=== PATIENT | male | born 1980 | race Caucasian/White ===

== ENCOUNTER → 2019-12-02 07:53 | Outpatient (CLI) | payer OTHER, SELFPAY ==
[2019-11-23 12:50] VITALS: BMI 34.5
--- NOTE | 2019-12-02 15:40 | PFTCOMP_ITS ---
COMPLETE PULMONARY FUNCTION TEST INTERPRETATION Brief HPI: Patient is a 39 year old male, currently under the care of myself, who presents to [facility] for complete pulmonary function tests secondary to diagnosis of dyspnea. Respiratory therapist reports good effort and reproducible results. Interpretation: Forced expiration spirometry shows no large airways obstructive ventilatory defect with an FEV1 of 89% predicted. There is no significant bronchodilator response by strict ATS criteria. Spirograms are of good quality and plateau normally. The respiratory flow volume loop shows a normal pattern. Lung volumes by body plethysmography show a normal total lung capacity at 6.7 L, 96% predicted. All other lung volumes are within normal limits. Diffusion capacity by carbon monoxide is normal at 101% predicted. The airway resistance is normal. No previous pulmonary function tests were available for review. Impression: Grossly normal pulmonary function test, but some stigmata of possible small airways disease.
== END ==
PROVIDERS: Referring Provider Internal Medicine Critical Care Medicine; Visit Provider Internal Medicine Critical Care Medicine
DX: R06.09 Other forms of dyspnea (principal)
CPT/HCPCS: 94060; 94726; 94729

== ENCOUNTER 2019-12-11 19:00 | Emergency (ER) | payer OTHER, SELFPAY ==
[2019-11-23 12:50] VITALS: BMI 34.5
[2019-12-11 19:01] VITALS: BP 127/70; PULSE 73; RESP 18; TEMP 36.1; O2SAT 96; BMI 33.7
--- NOTE | 2019-12-11 19:23 | ED.VIS.GEN ---
History of Present Illness Chief Complaint: Dizziness Informant: Patient Onset: Hours - 1-2 Context: Sudden Onset - When sat up Timing: Continuous, Waxes and wanes Quality: spinning Location: head Current Severity: Mild Maximum Severity: Severe Worsened by: moving/turning head Relieved by: remaining still Associated Symptoms: n/v, tinnitus bilat but worse on left Narrative: No injury to his head. Had an upper respiratory infection/cold a couple weeks ago that he is completely over now. Very remote history of tympanic membrane rupture when he was a child. States he was lying on the ground and felt a little woozy and then he sat up and suddenly felt spinning vertigo, followed by vomiting. No focal neurologic symptoms. He is feeling well whenever he is standing still, but when he moves his head or changes position he gets more vertiginous, nauseated, and has trouble walking straight as a result, when he is feeling vertiginous. No discharge from his ears or earache. No headache. No double vision. Past Medical History - Allergies and Home Meds Allergies/Adverse Reactions: Allergies ceftriaxone [From Rocephin] Allergy (Verified 12/11/19 19:03) Unknown levofloxacin [From Levaquin] Allergy (Verified 12/11/19 19:03) Unknown Primary Care Physician: Care Physician,No Primary [Primary Care Provider] - Past Medical History: None - Except remote tympanic membrane rupture, spontaneous Lives: Spouse/ Significant Other Smoking Status: Never smoker Review of Systems General: Denies: Chills, Fever, Sweats Eyes: Denies: Visual changes - bilaterally, Diplopia ENT: Reports: - - Bilateral tinnitus, worse on left. Denies: Bilateral ear pain, Rhinorrhea, Sore throat Cardiovascular: Denies: Chest pain, Palpitations Respiratory: Denies: Dyspnea, Cough, Dyspnea on exertion Gastrointestinal: Reports: Nausea, Vomiting. Denies: Abdominal pain, Diarrhea, Melena, Hematochezia Genitourinary: Denies: Dysuria, Hematuria, Frequency Musculoskeletal: Denies: Back pain, Extremity Pain Skin: Denies: Rash, Wounds Neurological: Reports: - - Vertigo. See HPI.. Denies: Headache, Weakness, Numbness Physical Exam Vital Signs/Narrative: Vital Signs Temp Pulse Resp BP Pulse Ox 12/11/19 19:01 97.0 F L 73 18 127/70 H 96 Inital Vital Signs reviewed: Yes General: Well nourished, Well developed, No Acute Distress Head: Normocephalic, Atraumatic Eyes: Perrl, EOMI, - - No abnormal nystagmus, no rotatory or vertical nystagmus. ENT: Moist mucous membranes, No rhinorrhea, TM's clear - No perforation. Small scar on left, indicating probable healed perforation remotely. Neck: Supple, Nontender, No lymphadenopathy Cardiovascular: Regular rate, Regular rhythm, No murmurs Respiratory: No distress, CTA bilaterally, Chest nontender Abdomen: Soft, Nontender, Nondistended, Normal bowel sounds Back: Nontender, Normal Inspection Extremities: Nontender, No edema Skin: Normal color, No rash, No Trauma Neurological: Alert, Oriented x3, Cranial nerves II-XII grossly intact, Normal Strength, Normal Sensation, Normal DTR, - - Normal ufnrgy-wj-ndyj and bjgq-lb-mexo bilaterally Psychological: Normal affect, Normal Mood Diagnostic/Tx/Re-eval - Medical Decision Making History and exam consistent with peripheral vertigo. Patient was treated with Phenergan and meclizine and is feeling much better and able to walk down the hallway and back without feeling off balance. Prescribed both and advised to follow-up with otolaryngology if he still has symptoms after a week. ED Disposition - Plan for ED Patient: Disposition: Home or Assisted Living Diagnosis: Peripheral vertigo Instructions: VERTIGO, Unspecified Prescriptions: Meclizine HCl 25 mg PO Q8H PRN #16 tab PRN Reason: Dizziness Transmission Status: Pending to [facility] Promethazine HCl 25 mg PO Q6H PRN #16 tab PRN Reason: Nausea/Vomiting Transmission Status: Pending to [facility] Referrals: Ramirez Jacobson MD [STAFF PHYSICIAN] - 1 Week if not improving
[2019-12-11] MEDS: proMETHazine 25 MG Tablet PO (19:26)
[2019-12-11] MEDS: Meclizine HCl 25 MG Tablet PO (19:26)
== END 2019-12-11 21:16 | disposition home or self-care (01) ==
PROVIDERS: Emergency Provider Emergency Medicine
DX: H81.399 Other peripheral vertigo, unspecified ear (principal); Z88.1 Allergy status to other antibiotic agents
CPT/HCPCS: 99283

== ENCOUNTER → 2020-06-27 09:39 | Outpatient (CLI) | payer OTHER, SELFPAY ==
[2020-06-27 08:29] VITALS: BMI 33.3
[2020-06-27 12:44] LABS: Cholesterol 186 mg/dL (200); High Density Lipoprotein 37 mg/dL; PSA,Total - Annual Screen 1.11 ng/mL (0.00-4.00); Triglycerides 163 mg/dL; Very Low Density Lipoprotein 33 mg/dL (5-40)
[2020-06-27 12:52] LABS: Hemoglobin A1c 5.4 % (3.8-5.6)
[2020-06-27 17:46] LABS: Xtra Tube EP Lab EXTRA TUBE
== END ==
PROVIDERS: PCP Internal Medicine; Visit Provider Internal Medicine
DX: R39.9 Unspecified symptoms and signs involving the genitourinary system (principal); Z12.5 Encounter for screening for malignant neoplasm of prostate; Z13.220 Encounter for screening for lipoid disorders; Z13.1 Encounter for screening for diabetes mellitus
CPT/HCPCS: 36415; 80061; 83036; 84153; G0103

== ENCOUNTER → 2023-09-16 | Outpatient (CLI) | payer OTHER, SELFPAY ==
[2023-09-16 13:05] LABS: Absolute Lymphocyte Count 2.11 X10^3/uL (0.83-4.51); Absolute Neutrophil Count 4.8 X10^3/uL (2.0-7.7); Basophil# 0.06 X10^3/uL; Basophil% 0.8 % (0-1); Eosinophil# 0.34 X10^3/uL; Eosinophils% 4.3 % (0-5); Hematocrit 46.2 % (40-54); Hemoglobin 15.3 g/dL (13.0-16.5); Lymphocyte # 2.11 X10^3/ul (0.83-4.51); Lymphocyte % 26.9 % (19-41); Mean Corp Hgb Conc 33.1 g/dL (32-36); Mean Corpuscular Hgb 29.7 pg (27.0-32.0); Mean Corpuscular Volume 89.7 fL (80-94); Mean Platelet Vol. 9.4 fl (6.2-12.0); Monocyte# 0.53 X10^3/uL; Monocyte% 6.8 % (0-10); NRBC Flagged by Analyzer 0 % (0-5); Neutrophil # 4.76 X10^3/uL (2.7-7.7); Neutrophil % 60.8 % (47-70); Platelet Count 302 K/mm3 (150-450); RBC Distribution Width CV 12.9 % (11.6-14.6); RBC Distribution Width SD 42.5 fl (35.1-43.9); Red Blood Count 5.15 M/mm3 (4.6-6.2); White Blood Count 7.8 K/mm3 (4.4-11.0)
[2023-09-16 13:21] LABS: Vitamin D,25 Hydroxy 32.4 ng/mL
[2023-09-16 13:32] LABS: AST(SGOT) 10 U/L (15-37); Alanine Aminotransfer ALT/SGPT 22 U/L (16-61); Albumin, Serum 3.7 g/dL (3.2-5.0); Alkaline Phosphatase 90 U/L (45-117); Anion Gap 4 (5-15); BUN 13 mg/dL (7-18); BUN/Creat Ratio 12.1 RATIO (10-20); Calcium,Total 8.6 mg/dL (8.5-10.1); Chloride 110 mmol/L (98-107); Cholesterol 199 mg/dL (200); Creatinine, Serum 1.07 mg/dL (0.70-1.30); EST Glomerular Filtration Rate 79 mL/min (>60); Est Glom Filt Rate - Afr Amer 96 mL/min (>60); Globulin 3.8 g/dL (2.2-4.2); Glucose 89 mg/dL (74-106); High Density Lipoprotein 40 mg/dL; PSA,Total - Annual Screen 0.58 ng/mL (0.00-4.00); Potassium 3.8 mmol/L (3.5-5.1); Protein, Total 7.5 g/dL (6.4-8.2); Sodium Level 140 mmol/L (136-145); Thyroid Stim Hormone (TSH) 2.48 uIU/mL (0.358-3.74); Triglycerides 148 mg/dL; Very Low Density Lipoprotein 30 mg/dL (5-40)
== END | disposition home or self-care (01) ==
LOC: PAVLAB 12:36
PROVIDERS: PCP Internal Medicine; Referring Provider Internal Medicine; Visit Provider Internal Medicine
DX: Z00.00 Encounter for general adult medical examination without abnormal findings (principal); J45.909 Unspecified asthma, uncomplicated; J30.2 Other seasonal allergic rhinitis; Z13.220 Encounter for screening for lipoid disorders; E55.9 Vitamin D deficiency, unspecified; Z12.5 Encounter for screening for malignant neoplasm of prostate
CPT/HCPCS: 36415; 80053; 80061; 82306; 84153; 84443; 85025; G0103

== ENCOUNTER 2023-10-10 06:28 | Day surgery (SDC) | payer OTHER, SELFPAY ==
[2023-10-10] VITALS (10 sets, daily range): BP systolic 78–135; BP diastolic 59–81; PULSE 70–79; RESP 16; TEMP 36.6–36.8; O2SAT 92–98; BMI 34.4
--- OUTSIDE RECORDS SUMMARY | 2023-10-10 06:30 | XMS RPT_ITS | CCD ---
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 Name Role Phone AYUSH BEBETO Gutierrez Unavailable Unavailable Allergies Allergy Classification Reported Allergen(s) Allergy Type Date of Onset Reaction(s) Facility (1 source) Cat; Translations: [CATS] Propensity to adverse reactions (disorder) 6 [facility] (1 source) ceftriaxone; Translations: [CEFTRIAXONE] Drug Allergy 0 [facility] (1 source) levoFLOXacin; Translations: [LEVOFLOXACIN] Drug Allergy 0 [facility] (1 source) Seasonal allergy; Translations: [SEASONAL ALLERGIES] Propensity to adverse reactions (disorder) 6 [facility] (1 source) DOG DANDER; Translations: [DOG DANDER] Propensity to adverse reactions to drug (disorder) 6 [facility] Encounters Encounter Date Encounter Type Care Provider Facility Start: 04-02-2017 End: 04-10-2017 Ambulatory BEBETO [facility]AC[facility] Summary Purpose Family History No Family History Records Found Advance Directives No Advanced Directives Records Found Additional Source Comments (unrecognized sect ion and content) No Status Records Found INFORMATION SOURCE (unrecogn ized section and content) FOR RECORDS PERTAINING TO PATIENTS WHO ARE OR HAVE BEEN ENROLLED IN A CHEMICAL DEPENDENCY/SUBSTANCEABUSE PROGRAM, SOME INFORMATION MAY BE OMITTED. This clinical summary was aggregated from multiple sources. Caution should be exercised in using it in the provision of clinical care. This summary normalizes information from multiple sources, and as a consequence, information in this document may materially change the coding, format and clinical context of patient data. In addition, data may be omitted in some cases. CLINICAL DECISIONS SHOULD BE BASED ON THE PRIMARY CLINICAL RECORDS. [facility]. provides no warranty or guarantee of the accuracy or completeness of information in this document.
--- NOTE | 2023-10-10 06:41 | HP.PCM_ITS ---
[facility] - General General Date of Service: 10/10/23 Chief Complaint: Screening for intestinal cancer [facility] Narrative CHRISTOS RAMIREZ, is a 43 M who presents for screening colonoscopy today. He has not had a previous exam. Family history is notable for his father having had colon Polyps. There is no direct history of colon cancer. He denies any bright red blood per rectum or melena. No abdominal pain. He otherwise enjoys steady health. He does have asthma. He has not had any asthmatic spells for years and takes no routine medicines and has not needed prn inhalers in a long time. [facility] Medical History (Updated 10/09/23 @ 09:08 by Deidre Gibson) Alcohol use Asthma Heartburn LUTS Migraine headache Non-smoker Restless legs Seasonal allergies Wears contact lenses Wears glasses Home Medications albuterol sulfate 90 mcg/actuation aerosol inhaler (ProAir HFA) 2 puff inhalation .Q4-6H PRN shortness of breath or wheezing #8.5 grams 11/15/19 [Rx Last Taken Unknown] multivitamin 1 tab PO DAILY 06/02/23 [History Last Taken Unknown] Allergy/AdvReac Type Severity Reaction Status Date / Time ceftriaxone [From Rocephin] Allergy Rash Verified 10/09/23 09:03 levofloxacin [From Levaquin] Allergy Unknown Verified 10/09/23 09:03 Family History (Updated 08/05/23 @ 12:46 by Laverne Penaloza) Father Cancer Leukemia Colon polyps Mother Hypertension Surgical History (Updated 10/09/23 @ 09:08 by Deidre Gibson) Hx of vasectomy Hx of wisdom tooth extraction Social History (Updated 08/05/23 @ 12:42 by Laverne Penaloza) household members: spouse current occupational status: employed Smoking Status: Never smoker alcohol intake: current alcohol intake frequency: holidays/special occasions only substance use type: does not use what type of physical activity do you participate in: none ROS Constitutional Constitutional: Reports systems reviewed and no addt'l complaints, except as documented Cardiovascular Cardiovascular: Denies chest pain Respiratory/Chest Respiratory/Chest: Denies shortness of breath at rest Gastrointestinal Gastrointestinal: Denies abdominal pain, change in bowel habits, hematochezia or melena Physical Exam Const alert, oriented x3 and no apparent distress General Appearance: cooperative and comfortable Eyes General Eye: normal appearance of both eyes Neck General: normal visual inspection Chest inspection of chest normal Resp Effort and Inspection: able to speak in complete sentences and symmetric chest movement Auscultation: clear to auscultation bilaterally Cardio regular rate and regular rhythm GI soft to palpation, non-tender and non-distended Extremity no calf tenderness Neuro oriented x3 Psych thought process normal Assessment & Plan Assessment/Plan (1) Encounter for screening for malignant neoplasm of colon: PLAN: 43-year-old gentleman presents for screening colonoscopy today with possible biopsy or polypectomy as indicated. He presents via open access. He has had an opportunity to ask and have questions answered. We will proceed as noted. Michael Jean M.D., F.A.C.S.
[2023-10-10] MEDS: Lactated Ringers 1,000 ML 15 ML IV (06:52)
[2023-10-10] MEDS: Midazolam 5 MG/ML Syringe (07:22)
--- NOTE | 2023-10-10 07:30 | COLBX_PTH ---
PATHOLOGY RESULTS PATIENT: CHRISTOS RAMIREZ LOC: EN U#:[id number] AGE/SX: 43/M ROOM: RE10/10/[address]: Dr. Michael Jean MD : 1980 BED: DIS: 10/10/2023 SPEC #: [id number] RECD: 10/10/23 12:01 STATUS: ELISHA FABY #: [id number] MONSE: 10/10/23 07:[address]: Michael Jean DEPT: SURGICAL PATHOLOGY RECD BY: Jael Tellez ENTERED: 10/10/23 12:02 SP TYPE: COLON BX OTHR DR: Dr. Shannon Viveros MD Tissues: SPLENIC FLEXURE Procedures: Surgery Specimen Level IV HEADER OPERATION: Colonoscopy with polyp biopsy PRE-OP DIAGNOSIS: Screening TISSUE SUBMITTED: Splenic flexure polyp MICROSCOPIC DIAGNOSIS Splenic flexure polyp, biopsy: Tubular adenoma. BERNARDA:eren 10/14/2023 MICROSCOPIC DESCRIPTION Slides are reviewed. GROSS DESCRIPTION Received in fixative is one container labeled with the patient's name and designated splenic flexure polyp. The specimen consists of multiple irregular fragments of light womack soft tissue that in aggregate measure 1.0 x 0.3 x 0.1 cm. The specimen is totally submitted in one cassette. / SJ:rg 10/10/2023 TC:1 CPT: 77621
--- NOTE | 2023-10-10 07:47 | OP.COLON_ITS ---
Patient Name: Allen Park Procedure Date: 10/10/2023 7:15 AM Date of : 1980 Age: 43 Procedure: Colonoscopy Indications: Screening for colorectal malignant neoplasm Providers: Michael Jean MD Referring MD: Michael Jean MD Medicines: Midazolam 4 mg IV, Meperidine 100 mg IV Patient Profile: Last Colonoscopy: none. The patient's first colonoscopy is today. Complications: No immediate complications. Procedure: Pre-Anesthesia Assessment: - Prior to the procedure, a History and Physical was performed, and patient medications and allergies were reviewed. The patient's tolerance of previous anesthesia was also reviewed. The risks and benefits of the procedure and the sedation options and risks were discussed with the patient. All questions were answered, and informed consent was obtained. Prior Anticoagulants: The patient has taken no anticoagulant or antiplatelet agents. ASA Grade Assessment: II - A patient with mild systemic disease. After reviewing the risks and benefits, the patient was deemed in satisfactory condition to undergo the procedure. After I obtained informed consent, the scope was passed under direct vision. Throughout the procedure, the patient's blood pressure, pulse, and oxygen saturations were monitored continuously. The adult colonoscope was introduced through the anus and advanced to the cecum, identified by appendiceal orifice and ileocecal valve. The colonoscopy was performed without difficulty. The patient tolerated the procedure well. The quality of the bowel preparation was good. The ileocecal valve and the appendiceal orifice were photographed. Moderate Sedation: Moderate (conscious) sedation was personally administered by the endoscopist. The following parameters were monitored: oxygen saturation, heart rate, blood pressure, and response to care. Total physician intraservice time was 15 minutes. Scope In: 7:27:54 AM Scope Withdrawal Time 0 hours 9 minutes 12 seconds Scope Out: 7:40:59 AM Total Procedure Duration Time 0 hours 13 minutes 5 seconds Findings: Hemorrhoids were found on perianal exam. A 3 mm polyp was found in the splenic flexure. The polyp was sessile. The polyp was removed with a cold biopsy forceps. Resection and retrieval were complete. The exam was otherwise without abnormality. Impression: - Hemorrhoids found on perianal exam. - One 3 mm polyp at the splenic flexure, removed with a cold biopsy forceps. Resected and retrieved. - The examination was otherwise normal. Recommendation: - Discharge patient to home. - Resume previous diet. - Continue present medications. - Repeat colonoscopy in 5 years for surveillance based on pathology results. - Telephone my office for pathology results in 1 week. Procedure Code(s): --- Professional --- 22566, Colonoscopy, flexible; with biopsy, single or multiple 95696, 59, Moderate sedation services provided by the same physician or other qualified health primary care physician performing the diagnostic or therapeutic service that the sedation supports, requiring the presence of an independent trained observer to assist in the monitoring of the patient's level of consciousness and physiological status; initial 15 minutes of intraservice time, patient age 5 years or older Diagnosis Code(s): --- Professional --- Z12.11, Encounter for screening for malignant neoplasm of colon K64.9, Unspecified hemorrhoids D12.3, Benign neoplasm of transverse colon (hepatic flexure or splenic flexure) CPT copyright 2021 [employer]. All rights reserved. The codes documented in this report are preliminary and upon him coder review may be revised to meet current compliance requirements. Michael Jean MD 10/10/2023 7:46:14 AM This report has been signed electronically. Number of Addenda: 0 Note Initiated On: 10/10/2023 7:15 AM
--- NOTE | 2023-10-10 07:47 | OP.CCLET_ITS ---
10/10/2023 Shannon Viveros [facility] [address] [place] [address] Re : Colonoscopy procedure for Allen Park Dear Dr. Viveros This procedure was performed on Tuesday, October 10, 2023. My impressions and recommendations are as follows: Impressions : - Hemorrhoids found on perianal exam. - One 3 mm polyp at the splenic flexure, removed with a cold biopsy forceps. Resected and retrieved. - The examination was otherwise normal. Recommendations : - Discharge patient to home. - Resume previous diet. - Continue present medications. - Repeat colonoscopy in 5 years for surveillance based on pathology results. - Telephone my office for pathology results in 1 week. My findings are described in the full procedure note, which is enclosed. If I can be of further assistance, please feel free to contact me at Doctor phone number(s): Work: . Sincerely, Michael Jean MD 10/10/2023 7:46:14 AM This report has been signed electronically.
== END 2023-10-10 08:16 | disposition home or self-care (01) ==
LOC: EN 06:28 → AC 06:29
PROVIDERS: PCP Internal Medicine; Referring Provider Internal Medicine; Visit Provider Surgery
PROC: 0DJD8ZZ Inspection of Lower Intestinal Tract, Via Natural or Artificial Opening Endoscopic (ICD-10-PCS; CPT 45378; principal; 2023-10-10 07:25)
DX: Z12.11 Encounter for screening for malignant neoplasm of colon (principal); J45.909 Unspecified asthma, uncomplicated; K64.4 Residual hemorrhoidal skin tags; D12.3 Benign neoplasm of transverse colon
CPT/HCPCS: 45380; 88305; 99152; 99153; J7120

== ENCOUNTER → 2024-03-12 | Outpatient (CLI) | payer OTHER, SELFPAY | END | disposition home or self-care (01) | PROVIDERS: PCP Internal Medicine; Referring Provider Surgery; Visit Provider Surgery | DX: R22.1 Localized swelling, mass and lump, neck (principal) ==